=== PATIENT | female | born 1995 | race Caucasian/White ===

== ENCOUNTER 2018-05-12 00:12 | Emergency (ER) | payer OTHER ==
[~2018-05-12] VITALS: Ht 162.6 cm; Wt 52.3 kg
[2018-05-12 00:14] VITALS: TEMP 97
[2018-05-12 00:58] LABS: BASO % 0.8 % (0.0-2.0); EOS # 0.1 (0.0-0.7); GRAN # 2.5 (1.4-6.5); HEMATOCRIT 37.4 % (37.0-47.0); HEMOGLOBIN 13.3 g/dl (12.5-16.0); LYMPH # 2.1 (1.2-3.4); LYMPH % 43.3 % (20.0-51.0); MEAN CELL VOLUME 88 fl (80.0-100.0); MEAN CORPUSCULAR HEMOGLOBIN 31 pg (27.0-31.0); MEAN CORPUSCULAR HGB CONC 36 g/dl (33.0-37.0); MEAN PLATELET VOLUME 9.1 fl (7.4-10.4); MONO # 0.2 (0.1-0.6); MONO % 4.7 % (1.7-9.3); PLATELET COUNT 204 K/mm3 (130-400); RED BLOOD COUNT 4.27 M/mm3 (4.10-5.30); REDCELL DISTRIBUTION WIDTH-CV 12.4 % (11.5-14.5)
[2018-05-12] MEDS ORDERED: LEXAPRO20 MG PO (01:03)
[2018-05-12 01:09] LABS: ALBUMIN 4.5 gm/dL (3.5-5.0); BILIRUBIN,TOTAL 0.2 mg/dL (0.0-1.0); CALCIUM 9.1 mg/dL (8.4-10.2); CREATININE, serum 0.63 (0.52-1.25); POTASSIUM 3.5 mmol/L (3.4-5.0); TOTAL PROTEIN 7.4 gm/dL (6.4-8.2)
[2018-05-12 03:28] VITALS: BP 89/62; PULSE 75
== END 2018-05-12 03:45 | disposition home or self-care (01) ==
LOC: COL.ER 00:12
PROVIDERS: Physician Assistant
DX: F10.129 Alcohol abuse with intoxication, unspecified (principal); Y90.8 Blood alcohol level of 240 mg/100 ml or more
CPT/HCPCS: J2405; J7030

== ENCOUNTER 2018-07-26 10:52 | Emergency (ER) | payer MEDICARE ==
[~2018-07-26] VITALS: Ht 162.6 cm; Wt 68.2 kg
[~2018-07-26 10:52] MED LIST: LEXAPRO20 MG PO
[2018-07-26 10:59] VITALS: BP 127/76
[2018-07-26] MEDS ORDERED: DESYREL 50MG50 MG PO (11:05)
[2018-07-26 11:26] LABS: COLLECTION METHOD CLEAN CATCH
[2018-07-26 11:43] LABS: ACETAMINOPHEN < 10 ug/mL (10-30); ALANINE AMINOTRANSFERASE 14 U/L (9-52); ALBUMIN 4.7 gm/dL (3.5-5.0); ALCOHOL(ethanol),MEDICAL < 10 mg/dL; ALKALINE PHOSPHATASE 54 U/L (50-136); ANION GAP 10 mmol/L (7-16); AST,SGOT 32 U/L (15-37); BILIRUBIN,TOTAL 0.6 mg/dL (0.0-1.0); BLOOD UREA NITROGEN 14 mg/dL (7-17); CALCIUM 9.9 mg/dL (8.4-10.2); CARBON DIOXIDE 26 mmol/L (22-30); CHLORIDE 105 mmol/L (98-107); CREATININE, serum 0.68 (0.52-1.25); GLUCOSE 142 mg/dL (74-106); POTASSIUM 4.8 mmol/L (3.4-5.0); SALICYLATE < 1.0 mg/dL; SODIUM 141 mmol/L (137-145); TOTAL PROTEIN 7.9 gm/dL (6.4-8.2)
[2018-07-26 11:44] LABS: TRICYCLIC ANTIDEPRESS URINE NEGATIVE
[2018-07-26 11:45] LABS: EOS # 0.1 (0.0-0.7); EOS % 1.7 % (0-4.0); GRAN # 1.7 (1.4-6.5); GRAN % 40.2 % (42.2-75.2); HEMATOCRIT 43.1 % (37.0-47.0); HEMOGLOBIN 14.7 g/dl (12.5-16.0); LYMPH # 2.1 (1.2-3.4); LYMPH % 51.1 % (20.0-51.0); MEAN CELL VOLUME 91 fl (80.0-100.0); MEAN CORPUSCULAR HEMOGLOBIN 31 pg (27.0-31.0); MEAN CORPUSCULAR HGB CONC 34 g/dl (33.0-37.0); MEAN PLATELET VOLUME 9.2 fl (7.4-10.4); MONO # 0.2 (0.1-0.6); MONO % 5.8 % (1.7-9.3); PLATELET COUNT 213 K/mm3 (130-400); RED BLOOD COUNT 4.74 M/mm3 (4.10-5.30)
[2018-07-26 11:52] LABS: MUCOUS Present /lpf; PH 6 (5-8); URINE APPEARANCE Hazy; URINE BACTERIA None Seen /hpf; URINE BILIRUBIN Negative (NEGATIVE); URINE BLOOD 1+ (NEGATIVE); URINE COLOR Yellow; URINE GLUCOSE Negative (NEGATIVE); URINE KETONE Negative (NEGATIVE); URINE LEUKOCYTE ESTERASE Negative (NEGATIVE); URINE NITRATE Negative (NEGATIVE); URINE PROTEIN(semi-quant) Negative (NEGATIVE); URINE UROBILINOGEN Negative (NEGATIVE)
[2018-07-26 18:15] VITALS: PULSE 71; TEMP 97.7
== END 2018-07-26 17:00 ==
LOC: COL.ER 10:52
PROVIDERS: Physician Assistant
DX: R45.851 Suicidal ideations (principal); F32.9 Major depressive disorder, single episode, unspecified

== ENCOUNTER 2019-03-04 00:23 | Emergency (ER) | payer OTHER ==
[~2019-03-04] VITALS: Ht 162.6 cm; Wt 52.3 kg
[~2019-03-04 00:23] MED LIST changes: +DESYREL 50MG50 MG PO
[2019-03-04 00:30] VITALS: BP 144/96; TEMP 99.4
[2019-03-04] MEDS ORDERED: WELLBUTRIN 75MG75 MG PO (00:42)
[2019-03-04] MEDS ORDERED: EPIPEN 2-PAK1 MG/ML IM (01:57)
[2019-03-04 02:15] VITALS: PULSE 80
== END 2019-03-04 02:15 | disposition home or self-care (01) ==
LOC: COL.ER 00:23
DX: T78.40XA Allergy, unspecified, initial encounter (principal)